=== PATIENT | male | born 1940 | race Caucasian/White ===

== ENCOUNTER → 2016-10-12 | Outpatient (CLI) | payer MEDICARE ==
[2016-10-12 12:38] LABS: ALKALINE PHOSPHATASE 52 U/L (45-117); ALT (GPT) 38 U/L (12-78); ANION GAP 6 MEQ/L (5-15); AST (GOT) 24 U/L (15-37); BICARBONATE 33.1 MEQ/L (21.0-32.0); BLOOD UREA NITROGEN 17 MG/DL (7-18); CHLORIDE 103 MEQ/L (98-107); GLOMERULAR FILTRATION RATE 86 ML/MIN (>89); GLUCOSE,FASTING 57 MG/DL (74-99); POTASSIUM 4.4 MEQ/L (3.5-5.1); SODIUM (NA) 142 MEQ/L (136-145); TOTAL BILIRUBIN ADULT 0.7 MG/DL (0.2-1.0)
== END ==
LOC: ELAB 10:06
PROVIDERS: ATTEND Internal Medicine Gastroenterology
DX: K59.09 Other constipation (principal)
CPT/HCPCS: 36415; 80053; 84443

== ENCOUNTER → 2016-10-17 | Outpatient (CLI) | payer MEDICARE ==
[2016-10-17 09:21] LABS: BICARBONATE 32.2 MEQ/L (21.0-32.0); HDL CHOLESTEROL 71.5 MG/DL (40.0-60.0); POTASSIUM 4.4 MEQ/L (3.5-5.1)
== END ==
LOC: ELAB 10:50
PROVIDERS: ATTEND Internal Medicine
DX: I10 Essential (primary) hypertension (principal); E78.5 Hyperlipidemia, unspecified; Z79.899 Other long term (current) drug therapy
CPT/HCPCS: 36415; 80048; 80061; 82550; 84450; 84460

== ENCOUNTER → 2017-02-24 | Outpatient (CLI) | payer MEDICARE ==
[2017-02-24 08:49] LABS: AUTOMATED NEUTROPHIL # 4.1 TH/MM3 (1.8-7.7); BASOPHIL # 0.1 TH/MM3 (0-0.2); BASOPHIL % 1.3 % (0.0-2.0); EOSINOPHIL # 0.2 TH/MM3 (0-0.4); EOSINOPHIL % 3.4 % (0.0-4.0); HEMATOCRIT 44.3 % (39.0-51.0); HEMO FLAGS DIFF FINAL; LYMPH % 23.6 % (9.0-44.0); LYMPHOCYTE # 1.5 TH/MM3 (1.0-4.8); MEAN CORPUSCULAR HEMOGLOBIN 31.2 PG (27.0-34.0); MEAN CORPUSCULAR HGB CONC 35.4 % (32.0-36.0); MONO % 7.3 % (0.0-8.0); NEUT % 64.4 % (16.0-70.0); PLATELET COUNT 191 TH/MM3 (150-450); RED BLOOD COUNT 5.03 MIL/MM3 (4.50-5.90); RED CELL DISTRIBUTION WIDTH 13.8 % (11.6-17.2); WHITE BLOOD COUNT 6.3 TH/MM3 (4.0-11.0)
[2017-02-24 09:32] LABS: ALKALINE PHOSPHATASE 52 U/L (45-117); ALT (GPT) 49 U/L (12-78); ANION GAP 4 MEQ/L (5-15); AST (GOT) 32 U/L (15-37); BICARBONATE 34.2 MEQ/L (21.0-32.0); BLOOD UREA NITROGEN 15 MG/DL (7-18); CHLORIDE 103 MEQ/L (98-107); CREATINE KINASE 122 U/L (39-308); GLOMERULAR FILTRATION RATE 75 ML/MIN (>89); HDL CHOLESTEROL 62.1 MG/DL (40.0-60.0); LDL CHOLESTEROL 84 MG/DL (0-99); POTASSIUM 4.4 MEQ/L (3.5-5.1); SODIUM (NA) 141 MEQ/L (136-145); TOTAL BILIRUBIN ADULT 0.8 MG/DL (0.2-1.0)
== END ==
LOC: ELAB 07:24
DX: I10 Essential (primary) hypertension (principal)
CPT/HCPCS: 36415; 80053; 80061; 82550; 85025

== ENCOUNTER → 2017-06-28 | Outpatient (CLI) | payer MEDICARE ==
[2017-06-28 12:08] LABS: AUTOMATED NEUTROPHIL # 3.9 TH/MM3 (1.8-7.7); BASOPHIL # 0.1 TH/MM3 (0-0.2); BASOPHIL % 1.1 % (0.0-2.0); EOSINOPHIL # 0.3 TH/MM3 (0-0.4); EOSINOPHIL % 5.3 % (0.0-4.0); HEMATOCRIT 43.5 % (39.0-51.0); HEMO FLAGS DIFF FINAL; LYMPH % 21.5 % (9.0-44.0); LYMPHOCYTE # 1.3 TH/MM3 (1.0-4.8); MEAN CELL VOLUME 88.7 FL (80.0-100.0); MEAN CORPUSCULAR HEMOGLOBIN 30.7 PG (27.0-34.0); MEAN CORPUSCULAR HGB CONC 34.6 % (32.0-36.0); MONO % 6.9 % (0.0-8.0); NEUT % 65.2 % (16.0-70.0); PLATELET COUNT 187 TH/MM3 (150-450); RED BLOOD COUNT 4.91 MIL/MM3 (4.50-5.90); RED CELL DISTRIBUTION WIDTH 13.9 % (11.6-17.2); WHITE BLOOD COUNT 5.9 TH/MM3 (4.0-11.0)
[2017-06-28 13:06] LABS: ALT (GPT) 37 U/L (12-78); ANION GAP 5 MEQ/L (5-15); AST (GOT) 28 U/L (15-37); BICARBONATE 31.5 MEQ/L (21.0-32.0); BLOOD UREA NITROGEN 18 MG/DL (7-18); CHLORIDE 102 MEQ/L (98-107); GLOMERULAR FILTRATION RATE 80 ML/MIN (>89); GLUCOSE,FASTING 85 MG/DL (74-99); POTASSIUM 3.4 MEQ/L (3.5-5.1); SODIUM (NA) 138 MEQ/L (136-145)
[2017-06-28 13:16] LABS: ALKALINE PHOSPHATASE 47 U/L (45-117); CREATINE KINASE 108 U/L (39-308); HDL CHOLESTEROL 66.7 MG/DL (40.0-60.0); LDL CHOLESTEROL 67 MG/DL (0-99); TOTAL BILIRUBIN ADULT 0.9 MG/DL (0.2-1.0)
== END ==
LOC: ELAB 09:04
DX: I10 Essential (primary) hypertension (principal); E78.5 Hyperlipidemia, unspecified
CPT/HCPCS: 36415; 80053; 80061; 82550; 84443; 85025

== ENCOUNTER → 2017-10-30 | Outpatient (CLI) | payer MEDICARE ==
[2017-10-30 12:21] LABS: ALBUMIN 4.2 GM/DL (3.4-5.0); ALT (GPT) 49 U/L (12-78); AST (GOT) 32 U/L (15-37); BICARBONATE 31.6 MEQ/L (21.0-32.0); BLOOD UREA NITROGEN 14 MG/DL (7-18); CALCIUM 9.2 MG/DL (8.5-10.1); CHLORIDE 101 MEQ/L (98-107); CHOLESTEROL 156 MG/DL (120-200); CREATININE 1.01 MG/DL (0.60-1.30); GLOMERULAR FILTRATION RATE 72 ML/MIN (>89); GLUCOSE,FASTING 99 MG/DL (74-99); SODIUM (NA) 141 MEQ/L (136-145)
[2017-10-30 12:23] LABS: ALKALINE PHOSPHATASE 52 U/L (45-117); CHOLESTEROL/ HDL RATIO 2.51 RATIO; HDL CHOLESTEROL 62.1 MG/DL (40.0-60.0); LDL CHOLESTEROL 75 MG/DL (0-99); TOTAL BILIRUBIN ADULT 0.8 MG/DL (0.2-1.0); TOTAL PROTEIN 7.5 GM/DL (6.4-8.2); TRIGLYCERIDES 96 MG/DL (42-150)
== END ==
LOC: ELAB 08:30
DX: E78.5 Hyperlipidemia, unspecified (principal)
CPT/HCPCS: 36415; 80053; 80061; 82550

== ENCOUNTER → 2018-02-27 | Outpatient (CLI) | payer MEDICARE ==
[2018-02-27 12:23] LABS: AUTOMATED NEUTROPHIL # 4.3 TH/MM3 (1.8-7.7); BASOPHIL # 0.1 TH/MM3 (0-0.2); BASOPHIL % 1.2 % (0.0-2.0); EOSINOPHIL # 0.2 TH/MM3 (0-0.4); EOSINOPHIL % 3.1 % (0.0-4.0); HEMATOCRIT 43.9 % (39.0-51.0); LYMPH % 19.7 % (9.0-44.0); LYMPHOCYTE # 1.2 TH/MM3 (1.0-4.8); MEAN CELL VOLUME 88.5 FL (80.0-100.0); MEAN CORPUSCULAR HEMOGLOBIN 30.3 PG (27.0-34.0); MEAN CORPUSCULAR HGB CONC 34.3 % (32.0-36.0); MEAN PLATELET VOLUME 8.2 FL (7.0-11.0); MONO % 7.6 % (0.0-8.0); MONOCYTE # 0.5 TH/MM3 (0-0.9); NEUT % 68.4 % (16.0-70.0); PLATELET COUNT 202 TH/MM3 (150-450); RED BLOOD COUNT 4.96 MIL/MM3 (4.50-5.90); RED CELL DISTRIBUTION WIDTH 13.6 % (11.6-17.2); WHITE BLOOD COUNT 6.3 TH/MM3 (4.0-11.0)
[2018-02-27 12:24] LABS: ALBUMIN 3.9 GM/DL (3.4-5.0); AST (GOT) 25 U/L (15-37); BICARBONATE 31.7 MEQ/L (21.0-32.0); BLOOD UREA NITROGEN 18 MG/DL (7-18); CALCIUM 9.1 MG/DL (8.5-10.1); CHOLESTEROL 147 MG/DL (120-200); CREATININE 0.98 MG/DL (0.60-1.30); GLOMERULAR FILTRATION RATE 74 ML/MIN (>89); GLUCOSE,FASTING 99 MG/DL (74-99)
[2018-02-27 12:35] LABS: ALKALINE PHOSPHATASE 46 U/L (45-117); ALT (GPT) 36 U/L (12-78); CHLORIDE 102 MEQ/L (98-107); HDL CHOLESTEROL 52.4 MG/DL (40.0-60.0); LDL CHOLESTEROL 70 MG/DL (0-99); SODIUM (NA) 141 MEQ/L (136-145); TOTAL BILIRUBIN ADULT 0.7 MG/DL (0.2-1.0); TOTAL PROTEIN 7.1 GM/DL (6.4-8.2); TRIGLYCERIDES 122 MG/DL (42-150)
== END ==
LOC: ELAB 08:32
DX: I10 Essential (primary) hypertension (principal); E78.5 Hyperlipidemia, unspecified
CPT/HCPCS: 36415; 80053; 80061; 82550; 84443; 85025